=== PATIENT | male | born 1975 | race Caucasian/White ===

== ENCOUNTER 2022-06-22 09:45 | Emergency (ER) | payer OTHER ==
[~2022-06-22] VITALS: Ht 188 cm; Wt 110.9 kg
[2022-06-22 09:52] VITALS: BP 153/89; PULSE 96; TEMP 98.7
[2022-06-22 11:05] LABS: BASO % 0.3 % (0.0-2.0); EOS % 0.2 % (0.0-4.0); GRAN # 7.2 K/mm3 (1.4-6.5); GRAN % 72.4 % (42.2-75.2); HEMATOCRIT 40.4 % (42.0-52.0); HEMOGLOBIN 13.4 g/dl (13.5-18.0); LYMPH # 1.9 K/mm3 (1.2-3.4); LYMPH % 19.4 % (20.0-51.0); MEAN CELL VOLUME 84 fl (80.0-100.0); MEAN CORPUSCULAR HEMOGLOBIN 28 pg (27-31); MEAN CORPUSCULAR HGB CONC 33 g/dl (33.0-37.0); MEAN PLATELET VOLUME 11.5 fl (7.4-10.4); MONO # 0.7 K/mm3 (0.1-0.6); MONO % 7.5 % (1.7-9.3); PLATELET COUNT 163 K/mm3 (130-400); REDCELL DISTRIBUTION WIDTH-CV 13.8 % (11.5-14.5)
[2022-06-22] MEDS ORDERED: AMOXICILLIN875 MG PO (11:19)
[2022-06-22] MEDS ORDERED: DOXYCYCLINE 10100 MG PO (11:19)
[2022-06-22 11:23] LABS: ALBUMIN 3.7 gm/dL (3.5-5.0); BILIRUBIN,TOTAL 0.7 mg/dL (0.2-1.2); CALCIUM 9.5 mg/dL (8.4-10.2); TOTAL PROTEIN 7.5 gm/dL (6.2-8.1)
== END 2022-06-22 11:39 | disposition home or self-care (01) ==
LOC: COL.ER 09:45
PROVIDERS: Physician Assistant
DX: L03.115 Cellulitis of right lower limb (principal); R59.0 Localized enlarged lymph nodes; Z28.310 Unvaccinated for COVID-19